=== PATIENT | female | born 1975 | race Two or more races ===

== ENCOUNTER 2020-12-19 17:21 | Emergency (ER) | payer BC ==
[~2020-12-19] VITALS: Ht 172.7 cm; Wt 117.0 kg
[2020-12-19] MEDS ORDERED: FAMOTIDINE 20 MG/2 ML VIAL IVP ONE (18:45)
[2020-12-19] MEDS ORDERED: ASPIRIN CHEWABLE 81 MG TABLET. PO ONE (18:45)
[2020-12-19] MEDS ORDERED: PROCHLORPERAZINE 10 MG/2 ML VIAL. IV ONE (18:45)
[2020-12-19] MEDS ORDERED: DEXAMETHASONE SOD PHOS 20 MG/5 ML VIAL. IV ONE (18:45)
[2020-12-19] MEDS ORDERED: IV NORMAL SALINE 1000ML BAG 1,000 ML IV SCH (18:45)
[2020-12-19] MEDS ORDERED: fentaNYL PF VIAL 100 MCG/2 ML VIAL IVP ONE (18:45)
[2020-12-19 18:47] LABS: BASO # 0.1 x10^3/uL (0.0-0.2); BASO % 0 % (0-3); EOS % 0 % (0-3); HEMATOCRIT 37.8 % (36.0-47.0); HEMOGLOBIN 13.2 g/dL (12.0-15.5); LYMPH # 2.9 x10^3/uL (1.0-4.8); LYMPH % 25 % (24-48); MEAN CORPUSCULAR HEMOGLOBIN 30 pg (25-35); MEAN CORPUSCULAR HGB CONC 35 g/dL (31-37); MEAN CORPUSCULAR VOLUME 86 fL (79-100); MONO # 0.9 x10^3/uL (0.0-1.1); MONO % 8 % (0-9); NEUT # 7.8 x10^3/uL (1.8-7.7); NEUT % 67 % (31-73); PLATELET COUNT 279 x10^3/uL (140-400); RED BLOOD COUNT 4.38 x10^6/uL (3.50-5.40); RED CELL DISTRIBUTION WIDTH 13.8 % (11.5-14.5); WHITE BLOOD COUNT 11.6 x10^3/uL (4.0-11.0)
[2020-12-19 18:49] LABS: BILIRUBIN,URINE NEGATIVE (NEG); CLARITY,URINE CLOUDY; COLOR,URINE AMBER; NITRITE,URINE NEGATIVE (NEG); PH,URINE 6.5 (<5.0-8.0); PROTEIN,URINE 30 mg/dL (NEG-TRACE); UROBILINOGEN,URINE 0.2 mg/dL (0.2 mg/dL)
[2020-12-19 18:56] LABS: BARBITURATES NEG (NEG); BENZODIAZEPINES NEG (NEG); CANNABINOIDS NEG (NEG); COCAINE NEG (NEG); METHADONE NEG (NEG); OPIATES NEG (NEG); PHENCYCLIDINE NEG (NEG)
[2020-12-19 18:58] LABS: AMPHETAMINE/METHAMPHETAMINE NEG (NEG)
[2020-12-19 18:59] LABS: CALCIUM 8.4 mg/dL (8.5-10.1); CREATININE 0.8 mg/dL (0.6-1.0); GFR 78.3; POTASSIUM 3.1 mmol/L (3.5-5.1)
[2020-12-19 19:05] LABS: ALBUMIN 3.5 g/dL (3.4-5.0); ALBUMIN/GLOBULIN RATIO 0.9 (1.0-1.7); TOTAL BILIRUBIN 0.4 mg/dL (0.2-1.0); TOTAL PROTEIN 7.3 g/dL (6.4-8.2)
[2020-12-19 19:07] LABS: BACTERIA,URINE MANY /HPF (0-FEW); RBC,URINE OCC /HPF (0-2)
--- NOTE | 2020-12-19 19:45 | PHYS DOC ---
Past Medical History Past Medical History: No Pertinent History Past Surgical History: No Surgical History Smoking Status: Never Smoker Alcohol Use: Occasionally General Adult EDM: Chief Complaint: MULTIPLE COMPLAINTS HPI: HPI: Patient is a 45 year old female who presents with went to [place] and came home on November 30. She states she was fine but then her knees got sick with a fever and body aches. She states for the last 8 days she has had a headache with neck stiffness or pulling sensation with mid chest pressure and epigastric pressure. She states she had nausea but no vomiting. She states in the last 10 days she is a 2 (-) Covid test. She states she has been fully vaccinated for Covid. She rates her discomfort in her head and neck an 8 out of 10. She states she has not had a fever for the last 2 days. She states has been taking diclofenac and ibuprofen and Tylenol. Patient was educated not to take diclofenac and ibuprofen together. Patient denies vision changes, numbness or tingling, focal weakness, vomiting, diarrhea, shortness of breath, cough, abdominal pain. Review of Systems: Review of Systems: Constitutional: + fever or chills. [] Eyes: Denies change in visual acuity. [] HENT: Denies nasal congestion or sore throat. [] Respiratory: Denies cough or shortness of breath. [] Cardiovascular: + chest pain or denies edema. [] GI: + abdominal pain, +nausea, denies vomiting, bloody stools or diarrhea. [] : Denies dysuria. [] Musculoskeletal: Denies back pain or joint pain. + Neck pain [] Integument: Denies rash. [] Neurologic: + headache, denies focal weakness or sensory changes. [] Endocrine: Denies polyuria or polydipsia. [] Lymphatic: Denies swollen glands. [] Psychiatric: Denies depression or anxiety. [] Heart Score: C/O Chest Pain: Yes HEART Score for Chest Pain: HEART Score for Chest Pain Response (Comments) Value History Slighlty/Non-Suspicious 0 ECG Normal 0 Age < 45 0 Risk Factors 1 or 2 Risk Factors 1 Troponin < Normal Limit 0 Total 1 Risk Factors: Risk Factors: DM, Current or recent (<one month) smoker, HTN, HLP, family history of CAD, obesity. Risk Scores: Score 0 - 3: 2.5% MACE over next 6 weeks - Discharge Home Score 4 - 6: 20.3% MACE over next 6 weeks - Admit for Clinical Observation Score 7 - 10: 72.7% MACE over next 6 weeks - Early Invasive Strategies Current Medications: Current Medications Medications (Trade) Dose Ordered Sig/Jake Start Time Stop Time Status Last Admin Dose Admin Aspirin (Aspirin Chewable) 324 mg 1X ONCE 12/19/20 18:45 12/19/20 18:46 DC 12/19/20 18:56 324 MG Dexamethasone Sodium Phosphate (Decadron) 10 mg 1X ONCE 12/19/20 18:45 12/19/20 18:46 DC 12/19/20 18:58 10 MG Famotidine (Pepcid Vial) 20 mg 1X ONCE 12/19/20 18:45 12/19/20 18:46 DC 12/19/20 19:01 20 MG Fentanyl Citrate (Fentanyl 2ml Vial) 50 mcg 1X ONCE 12/19/20 18:45 12/19/20 18:46 DC 12/19/20 19:00 50 MCG Prochlorperazine Edisylate (Compazine) 10 mg 1X ONCE 12/19/20 18:45 12/19/20 18:46 DC 12/19/20 18:56 10 MG Sodium Chloride 1,000 ml @ 1,000 mls/hr Q1H 12/19/20 18:45 12/19/20 19:44 12/19/20 18:55 1,000 MLS/HR Allergies: Allergies: Allergies Coded Allergies Type Severity Reaction Last Updated Verified naproxen Allergy Intermediate 12/19/20 Yes Physical Exam: PE: Constitutional: Well developed, well nourished, no acute distress, non-toxic appearance. [] HENT: Normocephalic, atraumatic, bilateral external ears normal, oropharynx moist, no oral exudates, nose normal. [] Eyes: PERRLA, EOMI, conjunctiva normal, no discharge. [] Neck: Normal range of motion, no tenderness, supple, no stridor. Range of motion is normal but slightly limited due to pain. [] Cardiovascular:Heart rate regular rhythm, no murmur [] Lungs & Thorax: Bilateral breath sounds clear to auscultation [] Abdomen: Bowel sounds normal, soft, no tenderness, no masses, no pulsatile masses. [] Skin: Warm, dry, no erythema, no rash. [] Back: No tenderness, no CVA tenderness. [] Extremities: No tenderness, no cyanosis, no clubbing, ROM intact, no edema. [] Neurologic: Alert and oriented X 3, normal motor function, normal sensory function, no focal deficits noted. [] Psychologic: Affect normal, judgement normal, mood normal. [] Current Patient Data: Labs: Laboratory Tests Test 12/19/20 17:50 12/19/20 18:29 12/19/20 18:36 Urine Collection Type Unknown Urine Color Divya Urine Clarity Cloudy Urine pH 6.5 (<5.0-8.0) Urine Specific [place] 1.025 (1.000-1.030) Urine Protein 30 mg/dL (NEG-TRACE) Urine Glucose (UA) Negative mg/dL (NEG) Urine Ketones (Stick) Trace mg/dL (NEG) Urine Blood Small (NEG) Urine Nitrite Negative (NEG) Urine Bilirubin Negative (NEG) Urine Urobilinogen Dipstick 0.2 mg/dL (0.2 mg/dL) Urine Leukocyte Esterase Small (NEG) Urine RBC Occ /HPF (0-2) Urine WBC 5-10 /HPF (0-4) Urine Squamous Epithelial Cells Many /LPF Urine Bacteria Many /HPF (0-FEW) Urine Mucus Marked /LPF Urine Opiates Screen Neg (NEG) Urine Methadone Screen Neg (NEG) Urine Barbiturates Neg (NEG) Urine Phencyclidine Screen Neg (NEG) Urine Amphetamine/Methamphetamine Neg (NEG) Urine Benzodiazepines Screen Neg (NEG) Urine Cocaine Screen Neg (NEG) Urine Cannabinoids Screen Neg (NEG) Urine Ethyl Alcohol Neg (NEG) White Blood Count 11.6 x10^3/uL (4.0-11.0) H Red Blood Count 4.38 x10^6/uL (3.50-5.40) Hemoglobin 13.2 g/dL (12.0-15.5) Hematocrit 37.8 % (36.0-47.0) Mean Corpuscular Volume 86 fL (79-100) Mean Corpuscular Hemoglobin 30 pg (25-35) Mean Corpuscular Hemoglobin Concent 35 g/dL (31-37) Red Cell Distribution Width 13.8 % (11.5-14.5) Platelet Count 279 x10^3/uL (140-400) Neutrophils (%) (Auto) 67 % (31-73) Lymphocytes (%) (Auto) 25 % (24-48) Monocytes (%) (Auto) 8 % (0-9) Eosinophils (%) (Auto) 0 % (0-3) Basophils (%) (Auto) 0 % (0-3) Neutrophils # (Auto) 7.8 x10^3/uL (1.8-7.7) H Lymphocytes # (Auto) 2.9 x10^3/uL (1.0-4.8) Monocytes # (Auto) 0.9 x10^3/uL (0.0-1.1) Eosinophils # (Auto) 0.0 x10^3/uL (0.0-0.7) Basophils # (Auto) 0.1 x10^3/uL (0.0-0.2) Sodium Level 141 mmol/L (136-145) Potassium Level 3.1 mmol/L (3.5-5.1) L Chloride Level 105 mmol/L (98-107) Carbon Dioxide Level 27 mmol/L (21-32) Anion Gap 9 (6-14) Blood Urea Nitrogen 13 mg/dL (7-20) Creatinine 0.8 mg/dL (0.6-1.0) Estimated GFR (Cockcroft-Gault) 78.3 BUN/Creatinine Ratio 16 (6-20) Glucose Level 90 mg/dL (70-99) Calcium Level 8.4 mg/dL (8.5-10.1) L Total Bilirubin 0.4 mg/dL (0.2-1.0) Aspartate Amino Transferase (AST) 48 U/L (15-37) H Alanine Aminotransferase (ALT) 69 U/L (14-59) H Alkaline Phosphatase 195 U/L (46-116) H Troponin I Quantitative < 0.017 ng/mL (0.000-0.055) WS-Oil-O-Type Natriuretic Peptide 69 pg/mL (0-124) Total Protein 7.3 g/dL (6.4-8.2) Albumin 3.5 g/dL (3.4-5.0) Albumin/Globulin Ratio 0.9 (1.0-1.7) L Lipase 78 U/L (73-393) POC Urine HCG, Qualitative Hcg negative (Negative) Laboratory Tests 12/19/20 18:29 Laboratory Tests 12/19/20 18:29 Vital Signs: Vital Signs Date Time Temp Pulse Resp B/P (MAP) Pulse Ox O2 Delivery O2 Flow Rate FiO2 12/19/20 19:23 97 Room Air 12/19/20 19:00 23 12/19/20 17:53 98.4 82 132/58 (82) 98.4 EKG: EK and read by Dr. Godoy is sinus rhythm and no STEMI. [address] Godoy as sinus rhythm and no STEMI. [] Radiology/Procedures: Radiology/Procedures: [] Impression: [facility] [address] [place] [address] IMAGING REPORT Signed PATIENT: ETIENNE ZAMORA ACCOUNT: [id number] : 1975 LOCATION: ER AGE: 45 SEX: F EXAM STATUS: REG ER ORD. PHYSICIAN: YANETH GUEVARA APRN REASON: CHEST PAIN PROCEDURE: PORTABLE CHEST 1V PROCEDURE: XR CHEST 1V.12/19/2020 8:20 PM REASON FOR STUDY: Reason: CHEST PAIN / Spl. Instructions: / History: . COMPARISON: None. FINDINGS: The lungs are clear. No pleural fluid is seen. Heart size and pulmonary vascularity appear normal. IMPRESSION: No acute abnormality. Electronically signed by: Quynh Zamora Jr., MD (12/19/2020 8:21 PM) [facility] DICTATED and SIGNED BY: QUYNH ZAMORA Jr, MD DATE: 12/19/20 [id number] [facility] [address] [place], [place] [id number] IMAGING REPORT Signed PATIENT: ETIENNE ZAMORA ACCOUNT: [id number] : 1975 LOCATION: ER AGE: 45 SEX: F EXAM STATUS: REG ER ORD. PHYSICIAN: YANETH GUEVARA APRN REASON: ABD PAIN, NAUSEA, ELEVATED LFT, OMNI 300, 75 ML IV PROCEDURE: CT ABD PELV W/ IV CONTRST ONLY CT HEAD AND C-SPINE WO, CT ABDOMEN+PELVIS W dated 12/19/2020 7:55 PM Indication:Reason: pain, stiffness / Spl. Instructions: / History: Comparison: No comparison is available. Technique: Noncontrast images were performed through the head and cervical spine. CTA acquisition was then obtained through the abdomen and pelvis using an infusion of 75 mL Omnipaque 300. One or more of the following individualized dose reduction techniques were utilized for this examination: 1. Automated exposure control 2. Adjustment of the mA and/or kV according to patient size 3. Use of iterative reconstruction technique Findings: CT head: There is no apparent intracranial hemorrhage or abnormal extra-axial fluid collection. No area of abnormal density is seen in the brain. The ventricles and basilar cisterns are normally positioned. The sinuses and mastoid air cells are clear. CT cervical spine: Alignment is normal. There is no loss of vertebral body height or prevertebral soft tissue swelling. No fracture line is seen. Intervertebral discs are not narrowed. There is no apparent destructive process. CT abdomen pelvis: There are irregular nodular opacities at the lung bases bilaterally. One in the left lower lobe measures about 1.4 cm. The largest in the right lower lobe measures about 1.5 cm. There may be some adenopathy at the right hilum. There may be some fatty infiltration of the liver. No focal liver lesion is identified. The spleen is probably at the upper limits of normal in size. Both kidneys enhance with contrast. No mass or obstruction is seen. The adrenal glands are not enlarged. The pancreas appears normal. There are small scattered retroperitoneal nodes. No definite adenopathy is seen. There is no apparent abdominal mass or inflammatory process. There is evidence of prior anterior abdominal wall hernia repair. There appears to be a small amount of fat herniated through the anterior abdominal wall near the umbilicus. Images through the pelvis show no abnormality of the distal ureters or bladder. No pelvic or inguinal adenopathy is seen. There appear to be some mildly prominent veins along the left side of the uterus and cervix. No pelvic soft tissue mass or inflammatory process is seen. There is a contraceptive device in the uterus. A normal appendix is seen arising from the cecum. There is probably a small left ovarian cyst. IMPRESSION: CT head: No acute abnormality. CT cervical spine: No acute abnormality. CT abdomen and pelvis: Borderline splenomegaly. No definite acute abnormality in the abdomen or pelvis. There are indeterminate ill-defined nodules at the lung bases. These could be inflammatory or malignant. There is also probably some lower right hilar adenopathy. Sarcoidosis would be a consideration. Electronically signed by: Quynh Zamora Jr., MD (12/19/2020 8:39 PM) [facility] DICTATED and SIGNED BY: QUYNH ZAMORA Jr, MD DATE: 12/19/[id number] 0 Course & Med Decision Making: Course & Med Decision Making Pertinent Labs and Imaging studies reviewed. (See chart for details) See HPI. Alert and oriented x4. Ambulatory with a steady gait. Skin pink warm and dry. Abdomen is soft and nontender. PERRLA. Moves all extremities equally and normal. She is afebrile here. Lungs are clear to all station all lobes. After medications given patient states she is feeling much better and ready to leave. She is had 2 L of normal saline. [place] is negative. Patient does have a primary care at . I will print off her radiology report so she can give it to her primary care doctor. I did tell her about the incidental finding of the nodules in her lungs. [] [place] Disclaimer: Dragelian Disclaimer: This electronic medical record was generated, in whole or in part, using a voice recognition dictation system. Departure Departure Impression: Primary Impression: Epigastric abdominal pain Additional Impressions: Enlargement of spleen Lung nodule Headache Qualified Codes: R51.9 - Headache, unspecified Disposition: HOME / SELF CARE / HOMELESS Condition: STABLE Referrals: UNKNOWN PCP NAME (PCP) Patient Instructions: Enlarged Spleen, General Headache Without Cause Additional Instructions: Follow-up with primary care provider by calling tomorrow. Take Tylenol for any pain. Drink plenty of fluids. YANETH GUEVARA TRAIN GATE ATTENDANT Dec 19, 2020 19:45
[2020-12-19] MEDS ORDERED: IOHEXOL 300 MG/ML 100ML VIAL. IV ONE (20:00)
[2020-12-19] MEDS ORDERED: CONTRAST GIVEN. MC PRN (20:00)
[2020-12-19] MEDS ORDERED: IV NORMAL SALINE 1000ML BAG 1,000 ML IV ONE (20:15)
--- NOTE | 2020-12-19 20:23 | RAD ---
PROCEDURE: XR CHEST 1V.12/19/2020 8:20 PM REASON FOR STUDY: Reason: CHEST PAIN / Spl. Instructions: / History: . COMPARISON: None. FINDINGS: The lungs are clear. No pleural fluid is seen. Heart size and pulmonary vascularity appear normal. IMPRESSION: No acute abnormality. Electronically signed by: Ren Zamora Jr., MD (12/19/2020 8:21 PM) [facility]ENTER[facility]arcel[facility]
[2020-12-19] MEDS ORDERED: POTASSIUM CHLORIDE 20 MEQ TABLET.ER. PO ONE (20:30)
--- NOTE | 2020-12-19 20:42 | RAD ---
CT HEAD AND C-SPINE WO, CT ABDOMEN+PELVIS W dated 12/19/2020 7:55 PM Indication:Reason: pain, stiffness / Spl. Instructions: / History: Comparison: No comparison is available. Technique: Noncontrast images were performed through the head and cervical spine. CTA acquisition was then obtained through the abdomen and pelvis using an infusion of 75 mL Omnipaque 300. One or more of the following individualized dose reduction techniques were utilized for this examinat ion: 1. Automated exposure control 2. Adjustment of the mA and/or kV according to patient size 3. Use of iterative reconstruction technique Findings: CT head: There is no apparent intracranial hemorrhage or abnormal extra-axial fluid collection. No ar ea of abnormal density is seen in the brain. The ventricles and basilar cisterns are normally positio tuan. The sinuses and mastoid air cells are clear. CT cervical spine: Alignment is normal. There is no loss of vertebral body height or prevertebral sof t tissue swelling. No fracture line is seen. Intervertebral discs are not narrowed. There is no appar ent destructive process. CT abdomen pelvis: There are irregular nodular opacities at the lung bases bilaterally. One in the le ft lower lobe measures about 1.4 cm. The largest in the right lower lobe measures about 1.5 cm. There may be some adenopathy at the right hilum. There may be some fatty infiltration of the liver. No foc al liver lesion is identified. The spleen is probably at the upper limits of normal in size. Both kid neys enhance with contrast. No mass or obstruction is seen. The adrenal glands are not enlarged. The pancreas appears normal. There are small scattered retroperitoneal nodes. No definite adenopathy is s een. There is no apparent abdominal mass or inflammatory process. There is evidence of prior anterior abdominal wall hernia repair. There appears to be a small amount of fat herniated through the anteri or abdominal wall near the umbilicus. Images through the pelvis show no abnormality of the distal ureters or bladder. No pelvic or inguinal adenopathy is seen. There appear to be some mildly prominent veins along the left side of the uterus and cervix. No pelvic soft tissue mass or inflammatory process is seen. There is a contraceptive dev ice in the uterus. A normal appendix is seen arising from the cecum. There is probably a small left o varian cyst. IMPRESSION: CT head: No acute abnormality. CT cervical spine: No acute abnormality. CT abdomen and pelvis: Borderline splenomegaly. No definite acute abnormality in the abdomen or pelvi s. There are indeterminate ill-defined nodules at the lung bases. These could be inflammatory or maligna nt. There is also probably some lower right hilar adenopathy. Sarcoidosis would be a consideration. Electronically signed by: Ren Zamora Jr., MD (12/19/2020 8:39 PM) [facility]
[2020-12-19 21:01] VITALS: BP 136/77
[2020-12-19 21:07] LABS: MONONUCLEOSIS PATIENT NEGATIVE (NEGATIVE)
--- NOTE | 2020-12-20 06:21 | EKG ---
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
== END 2020-12-19 21:31 | disposition home or self-care (01) ==
LOC: ER 17:21
DX: R10.13 Epigastric pain (principal); R16.1 Splenomegaly, not elsewhere classified; R91.1 Solitary pulmonary nodule; R51.9 Headache, unspecified; M54.2 Cervicalgia; Z88.5 Allergy status to narcotic agent
CPT/HCPCS: 36415; 70450; 71045; 72125; 74177; 80053; 80307; 81001; 81025; 83690; 83880; 84484; 85025; 86308; 87086; 93005; 96361; 96374; 96375; 99285; J0780; J1100; J3010; J3490; J7030; Q9967